=== PATIENT | male | born 1960 | race Asian ===

== ENCOUNTER 2019-04-05 21:06 | Emergency (ER) | payer SELFPAY ==
[~2019-04-05] VITALS: Ht 167.6 cm; Wt 68.0 kg
[2019-04-05] MEDS ORDERED: KETOROLAC 60MG/2ML VIAL IM ONE (23:30)
[2019-04-05 23:53] VITALS: BP 157/94
== END 2019-04-05 23:55 | disposition home or self-care (01) ==
LOC: ER 21:06
DX: S16.1XXA Strain of muscle, fascia and tendon at neck level, initial encounter (principal); V43.52XA Car driver injured in collision with other type car in traffic accident, initial encounter; Y93.89 Activity, other specified; Y92.411 Interstate highway as the place of occurrence of the external cause
CPT/HCPCS: 96372; 99283; J1885